=== PATIENT | female | born 1975 | race Caucasian/White ===

== ENCOUNTER 2018-07-17 23:32 | Emergency (ER) | payer OTHER ==
[2018-07-17] MEDS ORDERED: Adacel (T-DAP) 0.5 ML SYRINGE ONE (23:57)
== END 2018-07-18 00:06 | disposition home or self-care (01) ==
LOC: ERS 23:32
DX: T20.19XA Burn of first degree of multiple sites of head, face, and neck, initial encounter (principal); T22.112A Burn of first degree of left forearm, initial encounter; T23.172A Burn of first degree of left wrist, initial encounter; X10.2XXA Contact with fats and cooking oils, initial encounter
CPT/HCPCS: 90471; 90715

== ENCOUNTER 2018-09-25 13:29 | Outpatient (CLI) | payer MEDICAID ==
--- NOTE | 2018-09-25 14:46 | MMO ---
Bilateral MAMMO Bilat Screen [facility]. CLINICAL HISTORY: Patient is 43 years old and is seen for screening. The patient has no family history of breast cancer. The patient has no personal history of cancer. VIEWS: The views performed were: bilateral craniocaudal and bilateral mediolateral oblique. This study has been interpreted with the assistance of computer-aided detection. MAMMOGRAM FINDINGS: The breasts are heterogeneously dense, which could obscure a lesion on mammography. There are no suspicious masses, suspicious calcifications, or new areas of architectural distortion. IMPRESSION: THERE IS NO MAMMOGRAPHIC EVIDENCE OF MALIGNANCY. A ROUTINE FOLLOW-UP MAMMOGRAM IN 1 YEAR IS RECOMMENDED. ACR BI-RADS Category 1 - Negative MAMMOGRAPHY NOTE: 1. A negative mammogram report should not delay a biopsy if a dominant of clinically suspicious mass is present. 2. Approximately 10% to 15% of breast cancers are not detected by mammography. 3. Adenosis and dense breasts may obscure an underlying neoplasm.
== END 2018-09-25 13:30 | disposition home or self-care (01) ==
LOC: SCSMAMMO 13:29
PROVIDERS: ATTEND Advanced Practice Midwife
DX: Z12.31 Encounter for screening mammogram for malignant neoplasm of breast (principal)
CPT/HCPCS: 77067

== ENCOUNTER 2018-12-10 09:29 | Outpatient (CLI) | payer MEDICAID ==
--- NOTE | 2018-12-10 10:30 | MMO ---
Left Breast MAMMO Unilat Diag DDI LT+KIT. CLINICAL HISTORY: Patient is 43 years old and is seen for diagnostic exam. The patient has no family history of breast cancer. The patient has no personal history of cancer. VIEWS: The views performed were: left craniocaudal with tomosynthesis; left mediolateral oblique with tomosynthesis; left mediolateral; and left mediolateral with tomosynthesis. FILMS COMPARED: The present examination has been compared to prior imaging studies performed at [facility] on 09/25/2018, and at [facility] on 12/10/2018. MAMMOGRAM FINDINGS: The breast is heterogeneously dense, which could obscure a lesion on mammography. No mass or architectural distortion is seen to correspond to palpable abnormality lower inner left breast. Ultrasound shows no abnormality. There are no suspicious masses, suspicious calcifications, or new areas of architectural distortion. IMPRESSION: THERE IS NO MAMMOGRAPHIC EVIDENCE OF MALIGNANCY. NEGATIVE MAMMOGRAPHIC FINDINGS SHOULD NOT PRECLUDE BIOPSY OF A CLINICALLY SUSPICIOUS PALPABLE ABNORMALITY. A ROUTINE FOLLOW-UP MAMMOGRAM IN 1 YEAR IS RECOMMENDED. THE RESULTS OF THIS EXAM WERE SENT TO THE PATIENT. ACR BI-RADS Category 2 - Benign finding MAMMOGRAPHY NOTE: 1. A negative mammogram report should not delay a biopsy if a dominant of clinically suspicious mass is present. 2. Approximately 10% to 15% of breast cancers are not detected by mammography. 3. Adenosis and dense breasts may obscure an underlying neoplasm. Reported by: PIO BEAN MD Electonically Signed: [id number]
--- NOTE | 2018-12-10 10:43 | ULT ---
LIMITED ULTRASOUND LEFT BREAST: HISTORY: Palpable abnormality, lower inner left breast, which the patient states has been present for greater than three months, but it does feel larger in size. TECHNIQUE: Limited sonographic evaluation of the focal palpable abnormality in the region of the lower inner lef t breast, at the level of the inframammary fold, was performed. FINDINGS: No mass or cystic lesion is identified. Imaging of the right breast was performed for comparison, an d the breast parenchyma in each breast is overall symmetric, without distortion present. No mammographic finding is present. IMPRESSION: 1. BI-RADS category 2-Benign findings. Annual mammographic screening is recommended. 2. The patient's focal palpable abnormality should be further managed clinically, and negative mammo graphic or sonographic findings should not preclude biopsy of a clinically suspicious palpable abnorm ality. POS: OFF
== END 2018-12-10 09:30 | disposition home or self-care (01) ==
LOC: BICULT 09:29
PROVIDERS: ATTEND Advanced Practice Midwife
DX: N63.23 Unspecified lump in the left breast, lower outer quadrant (principal)
CPT/HCPCS: G0279

== ENCOUNTER 2020-12-26 09:56 | Emergency (ER) | payer MEDICAID | END 2020-12-26 11:38 | disposition home or self-care (01) | LOC: ERS 09:56 | DX: J30.2 Other seasonal allergic rhinitis (principal) | CPT/HCPCS: 71045 ==

== ENCOUNTER 2022-04-24 07:48 | Outpatient (CLI) | payer OTHER ==
[2022-04-24 08:35] LABS: #Basophils 0.1 10x3/uL (0.0-0.2); #Eosinphils 0.2 10x3/uL (0.0-0.5); #Monocytes 0.5 10x3/uL (0.0-1.1); #Neutrophils 3.8 10x3/uL (1.5-8.4); %Lymphocytes 24.6 % (18.0-47.0); %Monocytes 8.4 % (0.0-10.0); %Neutrophils 62.8 % (40.0-75.0); Hemoglobin 12.6 g/dL (12.0-15.5); Mean Corpuscular HGB CONC 31.7 g/dL (32.0-36.0); Mean Corpuscular Hemoglobin 28.2 pg (27.0-33.0); Mean Corpuscular Volume 88.8 fl (81.6-98.3); Mean Platelet Volume 9.3 fl (7.4-10.4); Platelet Count 326 10x3/uL (150-450); RBC Distribution Width 13.2 % (11.5-14.5); Red Blood Cell (RBC) Count 4.47 10x6/uL (3.90-5.03); White Blood Cell (WBC) Count 6.1 10x3/uL (3.5-10.5)
== END 2022-04-24 07:49 | disposition home or self-care (01) ==
LOC: LABBT 07:48
PROVIDERS: ATTEND Orthopaedic Surgery
DX: Z01.812 Encounter for preprocedural laboratory examination (principal); G56.01 Carpal tunnel syndrome, right upper limb
CPT/HCPCS: 85025

== ENCOUNTER 2022-04-27 06:57 | Day surgery (SDC) | payer OTHER ==
[2022-04-26 11:59] VITALS: BMI 38.9
[2022-04-27] MEDS ORDERED: Famotidine/PF 20 mg/2ml Vial ONE (10:00)
[2022-04-27] MEDS ORDERED: fentaNYL PF 100 MCG/2 ML SYRINGE ONE (10:44)
[2022-04-27] MEDS ORDERED: CEFAZOLIN 2 GM VIAL ONE (10:46)
[2022-04-27] MEDS ORDERED: Sodium Chloride 0.9% 100 ML ONE (10:46)
[2022-04-27] MEDS ORDERED: PROPOFOL 200 MG/20 ML VIAL ONE (10:52)
[2022-04-27] MEDS ORDERED: Ondansetron PF 4 MG/2 ML Vial ONE (10:52)
[2022-04-27] MEDS ORDERED: Dexamethasone 20 MG/5 ML VIAL ONE (10:52)
[2022-04-27] MEDS ORDERED: Ketorolac Tromethamine 30 MG/ML VIAL ONE (10:52)
[2022-04-27] MEDS ORDERED: Bupivacaine/Epinephrine 0.25% 30 ML VIAL ONE (11:02)
[2022-04-27] MEDS ORDERED: Lidocaine 1% (PF) 30 ML VIAL ONE (11:03)
[2022-04-27] MEDS ORDERED: FENTANYL 50 MCG/ML 1 ML VIAL ONE (12:01)
[2022-04-27] MEDS ORDERED: HYDROcodone/Acetaminophen 5/325 mg Tablet ONE (13:34)
== END 2022-04-27 14:00 | disposition home or self-care (01) ==
LOC: SDC 06:57
PROVIDERS: ATTEND Orthopaedic Surgery
PROC: 01N50ZZ Release Median Nerve, Open Approach (ICD-10-PCS; principal; 2022-04-27)
DX: G56.03 Carpal tunnel syndrome, bilateral upper limbs (principal)
CPT/HCPCS: J1100; J1885; J2001; J2405; J2704; J3010; J3490; S0028

== ENCOUNTER 2022-06-30 07:08 | Emergency (ER) | payer OTHER, SELFPAY ==
[2022-06-30 07:51] LABS: #Basophils 0.1 thou/uL (0.0-0.2); #Eosinphils 0.2 thou/uL (0.0-0.7); #Lymphocytes 1.4 thou/uL (1.20-3.40); #Monocytes 0.5 thou/uL (0.11-0.59); #Neutrophils 4.1 thou/uL (1.40-6.50); %Basophils 0.8 % (0.0-1.0); %Eosinophils 2.7 % (0.0-10.0); %Lymphocytes 22.4 % (21.0-51.0); %Monocytes 7.9 % (0.0-10.0); %Neutrophils 66.1 % (42.0-75.0); Hemoglobin 13.1 g/dL (12.0-16.0); Mean Corpuscular HGB CONC 32.6 g/dL (32.0-36.0); Mean Corpuscular Hemoglobin 28.7 pg (27.0-31.0); Mean Corpuscular Volume 87.9 fl (78.0-98.0); Mean Platelet Volume 6.7 fL (7.4-10.4); Platelet Count 337 10x3/uL (130-400); RBC Distribution Width 13.2 % (11.5-14.5); Red Blood Cell (RBC) Count 4.58 mill/uL (4.20-5.40); White Blood Cell (WBC) Count 6.2 10x3/uL (4.8-10.8)
[2022-06-30 08:03] LABS: BHCG - Serum Negative (NEGATIVE); Pregs Control Background? CLEAR/WHITE (CLR/WHITE); Pregs Control Bar Appear? YES (CONTROL BAR)
[2022-06-30 08:14] LABS: ALT (SGPT) 10 U/L (8-55); AST (SGOT) 17 U/L (5-34); Albumin 3.8 g/dL (3.5-5.0); Alkaline Phosphatase 88 U/L (40-110); Anion Gap 11 mmol/L (10-20); BUN (Urea Nitrogen) 12 mg/dL (7.0-18.7); Bilirubin, Total 0.4 mg/dL (0.2-1.2); Calc. Creatinine Clearance 0 mL/min (70-130); Calcium 8.6 mg/dL (7.8-10.44); Carbon Dioxide 23 mmol/L (22-29); Chloride 106 mmol/L (98-107); Estimated GFR 107; Globulin 3.5 g/dL (2.4-3.5); Glucose 102 mg/dL (70-105); Lipase 36 U/L (8-78); Potassium 4.1 mmol/L (3.5-5.1); Protein, Total 7.3 g/dL (6.0-8.3); Sodium 136 mmol/L (136-145)
[2022-06-30] MEDS ORDERED: Iopamidol-370 76% 500 ML 1 ML ONE (08:33)
[2022-06-30 09:03] LABS: Bacteria/HPF None Seen HPF (None Seen); Bilirubin Negative (Negative); Blood, Urine 2+ (Negative); Clarity Clear (Clear); Glucose, Urine (Dipstick) Normal (Negative); Ketone, Urine Negative (Negative); Leukocyte Negative Leu/uL (Negative); Nitrite Negative (Negative); Protein, Urine (Dipstick) Negative (Neg-Trace); RBC/HPF 0-3 HPF (0-3); Specific Gravity, Urine 1.011 (1.002-1.036); Squamous Epithelial 0-3 HPF (0-3); Urobilinogen Normal mg/dL (Less than 2); WBC/HPF 0-3 HPF (0-3); pH, Urine 6.5 (5.0-9.0)
[2022-06-30] MEDS ORDERED: Ketorolac Tromethamine 30 MG/ML VIAL ONE (09:50)
== END 2022-06-30 10:05 | disposition home or self-care (01) ==
LOC: ERS 07:08
DX: N20.0 Calculus of kidney (principal)
CPT/HCPCS: 36415; 74177; 80053; 81003; 81015; 83690; 84703; 85025; 96374; J1885